=== PATIENT | female | born 1995 | race Hispanic/Latino ===

== ENCOUNTER 2019-02-06 12:21 | Emergency (ER) | payer SELFPAY ==
[2019-02-06 13:21] LABS: #Eosinphils 0.1 thou/uL (0.0-0.7); #Monocytes 0.7 thou/uL (0.11-0.59); #Neutrophils 5.1 thou/uL (1.40-6.50); %Basophils 0.6 % (0.0-1.0); %Eosinophils 1.1 % (0.0-10.0); %Monocytes 8.4 % (0.0-10.0); %Neutrophils 64.8 % (42.0-75.0); Hemoglobin 12.9 g/dL (12.0-16.0); Mean Corpuscular HGB CONC 32.9 g/dL (32.0-36.0); Mean Corpuscular Volume 91.1 fL (78.0-98.0); Mean Platelet Volume 7.2 fL (7.4-10.4); Platelet Count 237 thou/uL (130-400); RBC Distribution Width 11.7 % (11.5-14.5); Red Blood Cell (RBC) Count 4.29 mill/uL (4.20-5.40); White Blood Cell (WBC) Count 7.9 thou/uL (4.8-10.8)
--- NOTE | 2019-02-06 14:08 | ULT ---
First trimester obstetrical ultrasound INDICATION: Clear vaginal discharge FINDINGS: Grayscale, color or spectral Doppler images were obtained of the pelvis via transabdominal and transvaginal approach. The uterus measures 8.3 x 5.2 x 6.5 cm. There is an intrauterine gestational sac with a mean sac diam eter of 1.38 cm. There is an internal yolk sac measuring 2.6 mm. No pole is identified. The average gestational age based on gestational sac size is 6 weeks and 2 days. The estimated due da te by ultrasound is September 30, 2019. The estimated gestational age by clinical data is 5 weeks and 3 days with estimated due date of October 06, 2019. The right ovary measures 2.7 x 2.0 x 4.2 cm. There is a 2.7 cm suspected corpus luteal cyst involving the right ovary. There is normal flow to the right ovary. The left ovary measures 2.7 x 1.2 x 2.1 cm. There is very mild free fluid in the pelvis. IMPRESSION: Single live intrauterine gestation. Corpus luteal cyst of the right adnexa. Mild free flu id in the pelvis is likely physiologic.
[2019-02-06 14:17] LABS: Bilirubin Negative (Negative); Blood, Urine Negative (Negative); Clarity Clear (Clear); Glucose, Urine (Dipstick) Normal (Negative); Leukocyte Negative Leu/uL (Negative); Nitrite Negative (Negative); Protein, Urine (Dipstick) Negative (Neg-Trace); Urobilinogen Normal mg/dL (Less than 2)
[2019-02-09 00:37] LABS: Chlamydia by PCR Not Detected (NotDetected); GC by PCR Not Detected (NotDetected)
== END 2019-02-06 14:44 | disposition home or self-care (01) ==
LOC: ERS 12:21
DX: O23.591 Infection of other part of genital tract in pregnancy, first trimester (principal); B96.89 Other specified bacterial agents as the cause of diseases classified elsewhere; O99.341 Other mental disorders complicating pregnancy, first trimester; F41.9 Anxiety disorder, unspecified; Z3A.01 Less than 8 weeks gestation of pregnancy
CPT/HCPCS: 36415; 76856; 81003; 84702; 85025; 86900; 86901; 87491; 87591